=== PATIENT | female | born 1950 | race Caucasian/White ===

== ENCOUNTER 2019-01-26 18:39 | Emergency (ER) | payer MEDICARE, BC ==
[~2019-01-26] VITALS: Ht 160 cm; Wt 88.6 kg
[~2019-01-26 18:39] MED LIST: RANI-366 PO
--- NOTE | 2019-01-26 19:49 | NUR ---
U/S CALLED BACK AT 19:49 SAID SHE WOULD BE RIGHT IN
[2019-01-26 19:57] LABS: CLARITY,URINE SLIGHTLY CLOUDY (Clear); COLOR,URINE YELLOW (Yellow); GLUCOSE, URINE NEGATIVE (Neg); KETONES,URINE TRACE mg/dl (Neg); LEUKOCYTE ESTERASE ,URINE SMALL (Neg); NITRITES, URINE POSITIVE (Neg); OCCULT BLOOD,URINE NEGATIVE (Neg); PROTEIN,URINE NEGATIVE (Neg)
[2019-01-26 20:00] LABS: UA COLLECTION TYPE VOIDED
[2019-01-26 20:05] LABS: BASOPHILS % (AUTO) 0.4 % (0-1); EOSINOPHILS # (AUTO) 0.1 X10'3 (0-0.9); EOSINOPHILS % (AUTO) 1.7 % (0-6); HEMATOCRIT 39.2 % (35.0-45.0); HEMOGLOBIN 13.3 g/dl (12.0-16.0); LYMPHOCYTES # (AUTO) 1.7 X10'3 (1.1-4.8); LYMPHOCYTES % (AUTO) 20.5 % (21-51); MEAN CORPUSCULAR HEMOGLOBIN 30.6 PG (27.0-31.0); MEAN CORPUSCULAR HGB CONC 33.9 g/dL (33.0-36.5); MEAN CORPUSCULAR VOLUME 90.4 FL (78-98); MEAN PLATELET VOLUME 10.1 FL (7.4-10.4); MONOCYTES # (AUTO) 0.9 X10'3 (0-0.9); MONOCYTES % (AUTO) 10.4 % (2-12); NEUTROPHILS # (AUTO) 5.6 X10'3 (1.8-7.7); PLATELET COUNT 152 X10'3 (140-440); RED BLOOD COUNT 4.34 X10'6 (4.20-5.60); RED CELL DISTRIBUTION WIDTH 13.4 % (11.5-14.5); WHITE BLOOD COUNT 8.4 X10'3 (4.5-11.0)
[2019-01-26 20:07] LABS: BACTERIA,URINE 4+ /HPF (Neg); MUCUS STRANDS NONE SEEN /LPF (Neg); RBC,URINE NONE SEEN /HPF (0-2); SQUAMOUS EPITHELIAL CELL,UR FEW /LPF (FEW); WBC,URINE 30-50 /HPF (0-4)
[2019-01-26 20:29] LABS: ALANINE AMINOTRANSFERASE 26 U/L (12-78); ALBUMIN 3.7 G/DL (3.4-5.0); ALBUMIN/GLOBULIN RATIO 1.1 (1.1-1.5); ALKALINE PHOSPHATASE 57 IU/L (46-116); ANION GAP 12 (8-16); ASPARTATE AMINO TRANSFERASE 16 U/L (10-37); BILIRUBIN,TOTAL 0.5 MG/DL (0.1-1.0); BLOOD UREA NITROGEN 15 MG/DL (7-18); CALCIUM 9.8 MG/DL (8.5-10.1); CHLORIDE 104 MMOL/L (99-107); CREATININE 0.94 MG/DL (0.40-0.90); GLUCOSE 106 MG/DL (70-104); LIPASE 58 U/L (73-393); POTASSIUM 4.2 MMOL/L (3.5-5.1); SODIUM 138 MMOL/L (135-145); TOTAL CARBON DIOXIDE 22.5 MMOL/L (24-32); TOTAL PROTEIN 7.2 G/DL (6.4-8.2); TROPONIN I < 0.04 NG/ML (0.0-0.05); eGFR 59 ML/MIN
[2019-01-26 20:43] LABS: D-DIMER 0.72 MG/L FEU (0-0.50)
[2019-01-26] MEDS ORDERED: iohexol 350MG/ML 100ml bottle IV ONE (21:34)
[2019-01-26] MEDS ORDERED: CEPH-571 PO (22:46)
[2019-01-26] MEDS ORDERED: ONDA4TAB6 PO (22:46)
[2019-01-26 22:54] VITALS: BP 121/76
== END 2019-01-26 23:01 | disposition home or self-care (01) ==
LOC: ER 18:40
DX: N39.0 Urinary tract infection, site not specified (principal); K80.50 Calculus of bile duct without cholangitis or cholecystitis without obstruction; K21.9 Gastro-esophageal reflux disease without esophagitis; E11.9 Type 2 diabetes mellitus without complications; F17.210 Nicotine dependence, cigarettes, uncomplicated; Z79.2 Long term (current) use of antibiotics; Z79.899 Other long term (current) drug therapy
CPT/HCPCS: 36415; 71275; 76700; 80053; 81001; 83690; 84484; 85025; 85379; 87077; 87088; 87186; 93005; 99284; Q9967

== ENCOUNTER 2020-02-18 00:47 | Emergency (ER) | payer MEDICARE, BC ==
[~2020-02-18] VITALS: Ht 160 cm; Wt 89.0 kg
[~2020-02-18 00:47] MED LIST changes: +CEPH-571 PO; +ONDA4TAB6 PO
[2020-02-18 01:18] LABS: BASOPHILS % (AUTO) 0.5 % (0-1); EOSINOPHILS # (AUTO) 0.3 X10'3 (0-0.9); EOSINOPHILS % (AUTO) 3.5 % (0-6); HEMATOCRIT 40.1 % (35.0-45.0); HEMOGLOBIN 13.4 g/dl (12.0-16.0); LYMPHOCYTES # (AUTO) 3.8 X10'3 (1.1-4.8); LYMPHOCYTES % (AUTO) 44.9 % (21-51); MEAN CORPUSCULAR HEMOGLOBIN 30.1 PG (27.0-31.0); MEAN CORPUSCULAR HGB CONC 33.4 g/dL (33.0-36.5); MEAN CORPUSCULAR VOLUME 90.2 FL (78-98); MONOCYTES # (AUTO) 0.7 X10'3 (0-0.9); MONOCYTES % (AUTO) 8.1 % (2-12); NEUTROPHILS # (AUTO) 3.6 X10'3 (1.8-7.7); PLATELET COUNT 179 X10'3 (140-440); RED BLOOD COUNT 4.45 X10'6 (4.20-5.60); RED CELL DISTRIBUTION WIDTH 14.1 % (11.5-14.5); WHITE BLOOD COUNT 8.4 X10'3 (4.5-11.0)
[2020-02-18 01:33] LABS: ALANINE AMINOTRANSFERASE 34 U/L (12-78); ALBUMIN/GLOBULIN RATIO 1.3 (1.1-1.5); ALKALINE PHOSPHATASE 62 IU/L (46-116); ANION GAP 8 (8-16); ASPARTATE AMINO TRANSFERASE 15 U/L (10-37); BILIRUBIN,TOTAL 0.4 MG/DL (0.1-1.0); BLOOD UREA NITROGEN 23 MG/DL (7-18); BUN/CREATININE RATIO 27.4 (6.6-38.0); CALCIUM 9.5 MG/DL (8.5-10.1); CHLORIDE 107 MMOL/L (99-107); CREATININE 0.84 MG/DL (0.40-0.90); GLUCOSE 121 MG/DL (70-104); LIPASE 92 U/L (73-393); POTASSIUM 3.8 MMOL/L (3.5-5.1); SODIUM 141 MMOL/L (135-145); TOTAL CARBON DIOXIDE 26.5 MMOL/L (24-32); eGFR 67 ML/MIN
[2020-02-18] MEDS ORDERED: LIDOcaine Viscous 15ml cup TP ONE (01:55)
[2020-02-18] MEDS ORDERED: proCHLORperazine 10 MG/2 ml inj IV ONE (01:55)
[2020-02-18] MEDS ORDERED: mag hydrox/Alum hydrox/simeth 30ml oral suspension PO ONE (01:55)
[2020-02-18] MEDS ORDERED: pantoprazole 40 MG vial IV ONE (01:55)
[2020-02-18] MEDS ORDERED: normal saline 1000ML IV soln IVB ONE (02:00)
[2020-02-18 02:54] VITALS: BP 132/88
== END 2020-02-18 03:14 | disposition home or self-care (01) ==
LOC: ER 00:48
DX: K21.9 Gastro-esophageal reflux disease without esophagitis (principal); E11.9 Type 2 diabetes mellitus without complications; Z90.710 Acquired absence of both cervix and uterus; Z79.899 Other long term (current) drug therapy
CPT/HCPCS: 36415; 71045; 80053; 83690; 84484; 85025; 93005; 96361; 96374; 96375; 99285; C9113; J0780; J7030

== ENCOUNTER 2020-03-31 23:24 | Emergency (ER) | payer MEDICARE, BC ==
[~2020-03-31] VITALS: Ht 160 cm; Wt 92.7 kg
[2020-03-31] MEDS ORDERED: LIDOcaine Viscous 15ml cup MM ONE (23:45)
[2020-03-31] MEDS ORDERED: mag hydrox/Alum hydrox/simeth 30ml oral suspension PO ONE (23:45)
[2020-03-31 23:50] VITALS: BP 139/71
[2020-03-31] MEDS ORDERED: ondansetron 4mg rapidly disintigrating tab PO ONE (23:55)
--- NOTE | 2020-03-31 23:57 | NUR ---
PT GIVEN GI COCKTAIL: LIDOCAINE AND MALLOX AND ZOFRAN ODT.
--- NOTE | 2020-04-01 00:11 | NUR ---
PT OOB INDEPENDANTLY AND AMBULATING WITH STEADY GAIT TO BR. REPORTS SHE MAY NEED TO HAVE BM.
--- NOTE | 2020-04-01 00:15 | NUR ---
PT VOMITED REPORTS "IT WAS ALL OF THE MEDICINE" STATES THE TABLET OF ZOFRAN DID DISSOLVE. DR. YEE NOTIFIED.
== END 2020-04-01 00:37 | disposition home or self-care (01) ==
LOC: ER 23:25
DX: K21.9 Gastro-esophageal reflux disease without esophagitis (principal); R07.89 Other chest pain; E11.9 Type 2 diabetes mellitus without complications; Z90.710 Acquired absence of both cervix and uterus; Z98.890 Other specified postprocedural states; Z79.2 Long term (current) use of antibiotics; Z79.899 Other long term (current) drug therapy
CPT/HCPCS: 93005; 99283

== ENCOUNTER 2020-05-08 00:35 | Emergency (ER) | payer MEDICARE, BC ==
[~2020-05-08] VITALS: Ht 160 cm; Wt 88.6 kg
[2020-05-08 00:38] VITALS: BP 155/112
[2020-05-08] MEDS ORDERED: sucralfate 1gm/10ml UD suspension PO STA (01:27)
[2020-05-08] MEDS ORDERED: mag hydrox/Alum hydrox/simeth 30ml oral suspension PO ONE (01:30)
[2020-05-08] MEDS ORDERED: LIDOcaine Viscous 15ml cup MM ONE (01:30)
[2020-05-08] MEDS ORDERED: SUCR1ORA12 PO (02:20)
== END 2020-05-08 02:40 | disposition home or self-care (01) ==
LOC: ER 00:36
DX: K21.9 Gastro-esophageal reflux disease without esophagitis (principal); E11.9 Type 2 diabetes mellitus without complications; Z90.710 Acquired absence of both cervix and uterus; Z79.2 Long term (current) use of antibiotics; Z79.899 Other long term (current) drug therapy
CPT/HCPCS: 99283

== ENCOUNTER 2022-06-29 18:41 | Emergency (ER) | payer MEDICARE, BC ==
[~2022-06-29] VITALS: Ht 160 cm; Wt 89.5 kg
[~2022-06-29 18:41] MED LIST changes: +SUCR1ORA12 PO
[2022-06-29 19:08] VITALS: BP 141/72
[2022-06-29 20:25] LABS: CLARITY,URINE SLIGHTLY CLOUDY (Clear); COLOR,URINE YELLOW (Yellow); GLUCOSE, URINE NEGATIVE (Neg); KETONES,URINE TRACE mg/dl (Neg); LEUKOCYTE ESTERASE ,URINE MODERATE (Neg); NITRITES, URINE POSITIVE (Neg); OCCULT BLOOD,URINE NEGATIVE (Neg); PROTEIN,URINE NEGATIVE (Neg); UROBILINOGEN,URINE 0.2 E.U/dL (0.2-1.0)
[2022-06-29 20:27] LABS: UA COLLECTION TYPE CLN CATCH MIDSTREAM
[2022-06-29 20:39] LABS: BACTERIA,URINE 2+ /HPF (Neg); RBC,URINE 0-2 /HPF (0-2); SQUAMOUS EPITHELIAL CELL,UR FEW /LPF (FEW); TRANSITIONAL EPI CELLS,URINE FEW /HPF; WBC,URINE 20-30 /HPF (0-4)
[2022-06-29] MEDS ORDERED: CEFD300C21 PO (20:48)
[2022-06-29] MEDS ORDERED: cephalexin 250mg capsule PO ONE (20:50)
== END 2022-06-29 21:08 | disposition home or self-care (01) ==
LOC: ER 18:41
DX: N10 Acute pyelonephritis (principal); K21.9 Gastro-esophageal reflux disease without esophagitis; E11.9 Type 2 diabetes mellitus without complications; Z90.710 Acquired absence of both cervix and uterus; Z98.890 Other specified postprocedural states; Z79.899 Other long term (current) drug therapy
CPT/HCPCS: 81001; 87077; 87088; 87186; 99283

== ENCOUNTER 2022-09-10 09:20 | Emergency (ER) | payer MEDICARE, BC ==
[~2022-09-10] VITALS: Ht 160 cm; Wt 85.8 kg
[2022-09-10 09:45] VITALS: BP 121/77
[2022-09-10 09:53] LABS: ALANINE AMINOTRANSFERASE 15 U/L (12-78); ALBUMIN 4.2 G/DL (3.4-5.0); ALBUMIN/GLOBULIN RATIO 1.2 (1.1-1.5); ALKALINE PHOSPHATASE 61 IU/L (46-116); ANION GAP 13 (8-16); BILIRUBIN,TOTAL 0.5 MG/DL (0.1-1.0); BLOOD UREA NITROGEN 21 MG/DL (7-18); CALCIUM 10.2 MG/DL (8.5-10.1); CHLORIDE 104 MMOL/L (99-107); CREATININE 1.05 MG/DL (0.40-0.90); GLUCOSE 141 MG/DL (70-104); SODIUM 138 MMOL/L (135-145); TOTAL CARBON DIOXIDE 21.5 MMOL/L (24-32); TOTAL PROTEIN 7.8 G/DL (6.4-8.2); eGFR 52 ML/MIN
[2022-09-10 09:56] LABS: POTASSIUM 4.4 MMOL/L (3.5-5.1)
[2022-09-10 09:57] LABS: ASPARTATE AMINO TRANSFERASE 24 U/L (10-37)
[2022-09-10 10:02] LABS: MAGNESIUM 2.3 MG/DL (1.5-2.4)
[2022-09-10 11:57] LABS: BASOPHILS # (AUTO) 0.1 X10'3 (0-0.2); BASOPHILS % (AUTO) 0.7 % (0-1); EOSINOPHILS # (AUTO) 0.3 X10'3 (0-0.9); EOSINOPHILS % (AUTO) 3.4 % (0-6); HEMATOCRIT 45.2 % (35.0-45.0); LYMPHOCYTES # (AUTO) 2.7 X10'3 (1.1-4.8); LYMPHOCYTES % (AUTO) 31.7 % (21-51); MEAN CORPUSCULAR HEMOGLOBIN 29.9 PG (27.0-31.0); MEAN CORPUSCULAR HGB CONC 33.3 g/dL (33.0-36.5); MEAN CORPUSCULAR VOLUME 89.8 FL (78-98); MEAN PLATELET VOLUME 10.2 FL (7.4-10.4); MONOCYTES # (AUTO) 0.7 X10'3 (0-0.9); MONOCYTES % (AUTO) 7.6 % (2-12); NEUTROPHILS # (AUTO) 4.9 X10'3 (1.8-7.7); NEUTROPHILS % (AUTO) 56.6 % (42-75); PLATELET COUNT 201 X10'3 (140-440); RED BLOOD COUNT 5.03 X10'6 (4.20-5.60); RED CELL DISTRIBUTION WIDTH 13.9 % (11.5-14.5); WHITE BLOOD COUNT 8.6 X10'3 (4.5-11.0)
== END 2022-09-10 15:29 | disposition home or self-care (01) ==
LOC: ER 09:22
DX: R07.9 Chest pain, unspecified (principal); R53.1 Weakness; R42 Dizziness and giddiness; K21.9 Gastro-esophageal reflux disease without esophagitis; E11.9 Type 2 diabetes mellitus without complications; G89.29 Other chronic pain; M54.9 Dorsalgia, unspecified
CPT/HCPCS: 36415; 71045; 80053; 83735; 83880; 84484; 85025; 93005; 99285

== ENCOUNTER 2024-05-26 14:32 | Emergency (ER) | payer MEDICARE, OTHER ==
[~2024-05-26] VITALS: Ht 160 cm; Wt 68.7 kg
[2024-05-26 15:35] LABS: BASOPHILS % (AUTO) 0.3 % (0-1); EOSINOPHILS % (AUTO) 0 % (0-6); HEMATOCRIT 42.4 % (35.0-45.0); HEMOGLOBIN 14.2 g/dl (12.0-16.0); LYMPHOCYTES # (AUTO) 1.1 X10'3 (1.1-4.8); LYMPHOCYTES % (AUTO) 9.7 % (21-51); MEAN CORPUSCULAR HEMOGLOBIN 29.9 PG (27.0-31.0); MEAN CORPUSCULAR HGB CONC 33.5 g/dL (33.0-36.5); MEAN CORPUSCULAR VOLUME 89.4 FL (78-98); MEAN PLATELET VOLUME 10.6 FL (7.4-10.4); MONOCYTES # (AUTO) 0.5 X10'3 (0-0.9); MONOCYTES % (AUTO) 4.3 % (2-12); NEUTROPHILS # (AUTO) 9.7 X10'3 (1.8-7.7); NEUTROPHILS % (AUTO) 85.7 % (42-75); PLATELET COUNT 208 X10'3 (140-440); RED BLOOD COUNT 4.74 X10'6 (4.20-5.60); RED CELL DISTRIBUTION WIDTH 13.9 % (11.5-14.5); WHITE BLOOD COUNT 11.4 X10'3 (4.5-11.0)
[2024-05-26 15:46] LABS: BILIRUBIN,URINE NEGATIVE (Neg); CLARITY,URINE CLEAR (Clear); COLOR,URINE YELLOW (Yellow); GLUCOSE, URINE NEGATIVE (Neg); KETONES,URINE TRACE mg/dl (Neg); LEUKOCYTE ESTERASE ,URINE SMALL (Neg); NITRITES, URINE NEGATIVE (Neg); OCCULT BLOOD,URINE NEGATIVE (Neg); PROTEIN,URINE TRACE mg/dl (Neg); UROBILINOGEN,URINE 0.2 E.U/dL (0.2-1.0)
[2024-05-26 16:01] LABS: UA COLLECTION TYPE VOIDED
[2024-05-26 16:04] LABS: ALANINE AMINOTRANSFERASE 19 U/L (12-78); ALBUMIN 3.8 G/DL (3.4-5.0); ALBUMIN/GLOBULIN RATIO 1.1 (1.1-1.5); ALKALINE PHOSPHATASE 59 IU/L (46-116); ANION GAP 11 (8-16); ASPARTATE AMINO TRANSFERASE 15 U/L (10-37); BILIRUBIN,TOTAL 0.9 MG/DL (0.1-1.0); BLOOD UREA NITROGEN 13 MG/DL (7-18); BUN/CREATININE RATIO 15.9 (10.0-20.0); CALCIUM 9.6 MG/DL (8.5-10.1); CHLORIDE 104 MMOL/L (99-107); CREATININE 0.82 MG/DL (0.40-0.90); GLUCOSE 138 MG/DL (70-104); LIPASE 16 U/L (16-77); POTASSIUM 3.9 MMOL/L (3.5-5.1); SODIUM 140 MMOL/L (135-145); TOTAL CARBON DIOXIDE 25.3 MMOL/L (24-32); TOTAL PROTEIN 7.2 G/DL (6.4-8.2); eCRCL 51 ML/MIN; eGFR 69 ML/MIN
[2024-05-26 16:09] LABS: SQUAMOUS EPITHELIAL CELL,UR MODERATE /LPF (FEW)
[2024-05-26 16:10] LABS: BACTERIA,URINE 1+ /HPF (Neg); RBC,URINE NONE SEEN /HPF (0-2); WBC,URINE 20-30 /HPF (0-4)
[2024-05-26] MEDS: normal saline 1000ml 1,000 ML IV STA (20:39)
[2024-05-26] MEDS ORDERED: iohexol 300mg/ml 100ml inj. ONE (20:58)
[2024-05-26] MEDS ORDERED: NITR100C6 PO (22:14)
[2024-05-26] MEDS ORDERED: ONDA-243 PO (22:14)
[2024-05-26] MEDS: nitrofuran monohydrate/nitrofuran macrocrysal 100 MG (MacroBID) capsule PO STA (22:30)
[2024-05-26] MEDS: ondansetron/PF 4mg/2ml inj IV STA (22:33)
[2024-05-26 22:59] VITALS: BP 145/72; PULSE 72; RESP 18; TEMP 97.9; O2SAT 98
== END 2024-05-26 23:01 | disposition home or self-care (01) ==
LOC: ER 14:33
DX: K57.90 Diverticulosis of intestine, part unspecified, without perforation or abscess without bleeding (principal); A08.4 Viral intestinal infection, unspecified; N39.0 Urinary tract infection, site not specified; K21.9 Gastro-esophageal reflux disease without esophagitis; E11.9 Type 2 diabetes mellitus without complications; G89.29 Other chronic pain; M54.9 Dorsalgia, unspecified; Z79.899 Other long term (current) drug therapy; Z90.710 Acquired absence of both cervix and uterus
CPT/HCPCS: 36415; 74177; 80053; 81001; 83605; 83690; 85025; 87088; 96361; 96374; 99285; J2405; J7030; Q9967